=== PATIENT | male | born 1955 | race Caucasian/White ===

== ENCOUNTER 2016-08-17 08:07 | Day surgery (SDC) | payer BC, OTHER ==
[2016-08-15 11:16] VITALS: BMI 27.8
[2016-08-17] MEDS ORDERED: PROPOFOL 20 ML ONE ×2 (08:10)
[2016-08-17 08:24] VITALS: TEMP 98.2
[2016-08-17 10:28] VITALS: BP 120/78; PULSE 66
== END 2016-08-17 10:30 | disposition home or self-care (01) ==
LOC: FASU-ENDO 08:07
PROVIDERS: ATTEND Internal Medicine Gastroenterology
PROC: 0DJD8ZZ Inspection of Lower Intestinal Tract, Via Natural or Artificial Opening Endoscopic (ICD-10-PCS; principal; 2016-08-17 09:17)
DX: Z12.11 Encounter for screening for malignant neoplasm of colon (principal); Z80.0 Family history of malignant neoplasm of digestive organs

== ENCOUNTER 2022-07-17 08:21 | Day surgery (SDC) | payer BC ==
[2022-07-12 14:29] VITALS: BMI 27.8
[2022-07-17 10:36] VITALS: PULSE 96; RESP 18; TEMP 97.1
[2022-07-17 11:03] VITALS: BP 130/80
== END 2022-07-17 11:00 | disposition home or self-care (01) ==
LOC: FASU-ENDO 08:21
PROVIDERS: ATTEND Internal Medicine Gastroenterology
PROC: 0DBN8ZX Excision of Sigmoid Colon, Via Natural or Artificial Opening Endoscopic, Diagnostic (ICD-10-PCS; 2022-07-17)
PROC: 0DBK8ZX Excision of Ascending Colon, Via Natural or Artificial Opening Endoscopic, Diagnostic (ICD-10-PCS; principal; 2022-07-17 09:59)
DX: Z12.11 Encounter for screening for malignant neoplasm of colon (principal); D12.2 Benign neoplasm of ascending colon; D12.5 Benign neoplasm of sigmoid colon; Z83.71 Family history of colonic polyps
CPT/HCPCS: 88305-TC